=== PATIENT | female | born 1940 | race Caucasian/White ===

== ENCOUNTER 2016-11-23 10:58 | Emergency (ER) | payer MEDICARE, OTHER ==
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
--- NOTE | 2016-11-23 12:14 | Diagnostic Imaging Report ---
Left hip 2 views Indication: Fall Comparison: none Findings: There is faint calcification seen superior to the left femoral head laterally probably due to chondrocalcinosis. Otherwise no evidence of an acute fracture or dislocation. Degenerative changes of lower lumbar spine and SI joints are noted. The bilateral hip joints are preserved. Impression: Faint calcification seen superior to the left femoral head. This may be related to chondrocalcinosis. Traumatic etiology would be considered less likely. Otherwise no fracture is identified. In the setting of trauma, if clinical symptoms persist and there is continued concern for an occult fracture, follow up exams in 5-7 days is suggested.
--- NOTE | 2016-11-23 12:17 | Diagnostic Imaging Report ---
Left rib series 2 limited views Indication: Trauma Comparison: none Findings: Exam is limited as only 2 views were obtained. There is evidence of likely chronic fractures of the left fifth, sixth and seventh ribs. There is subtle lucency seen along the left posterior/lateral ninth rib. No evidence of pneumothorax. Chronic lung changes are noted. Atherosclerosis is noted. Postsurgical changes of the right upper quadrant are noted. Degenerative changes of spine are noted. Impression: Subtle lucency seen along ninth left posterior/lateral rib. This may be due to projection. A nondisplaced fracture is less likely but cannot be completely excluded. Please correlate with point tenderness in this region Additional chronic appearing fractures involving the left fifth, sixth, and seventh ribs. In the setting of trauma, if clinical symptoms persist and there is continued concern for an occult fracture, follow up exams in 5-7 days is suggested.
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
--- NOTE | 2016-11-23 13:07 | Diagnostic Imaging Report ---
CT abdomen and pelvis without intravenous contrast Indication: Fall, pain Comparison: X-rays of the pelvis earlier the same day, Technique: Axial images were obtained from the lung bases to the bilateral proximal femurs without IV contrast. Coronal reconstructions were made. total DLP: 514, CTDI10.4 FINDINGS: Hypoventilatory and atelectatic changes of the lung bases are noted. Assessment of the solid organs is limited that lack of IV contrast. No evidence of focal hepatic lesions. The patient is status post cholecystectomy. No focal splenic or pancreas lesions. Splenic artery calcifications are noted. No focal adrenal lesions. No hydronephrosis or focal renal lesions. Small uterine calcification is noted, nonspecific. Diverticulosis is noted without evidence of diverticulitis. No evidence of acute appendicitis. No evidence of free abdominal fluid or free abdominal air. Mild atherosclerotic vascular disease is noted. Advanced multilevel degenerative change of the spine are noted with multilevel moderate to advanced disc space loss of height and vacuum phenomena. No evidence of an acute fracture or subluxation. Note exam was limited as dedicated lumbar spine CT was not performed. Osteopenia is noted. IMPRESSION: Limited exam due to lack of IV contrast. No evidence of free abdominal fluid or evidence of solid organ injury. Advanced degenerative changes of the spine. No evidence of an acute fracture. Osteopenia. Diverticulosis without evidence of diverticulitis. Evidence of prior cholecystectomy.
== END 2016-11-23 15:00 | disposition home or self-care (01) ==
LOC: ER 10:58
DX: S70.02XA Contusion of left hip, initial encounter (principal); S10.93XA Contusion of unspecified part of neck, initial encounter; M11.212 Other chondrocalcinosis, left shoulder; W19.XXXA Unspecified fall, initial encounter; Y93.89 Activity, other specified; Y92.89 Other specified places as the place of occurrence of the external cause; Y99.8 Other external cause status
CPT/HCPCS: 71101-TC-LT; 72040-TC; 93005; Z7502